=== PATIENT | female | born 1960 | race Caucasian/White ===

== ENCOUNTER 2018-08-22 09:47 | Observation (INO) | payer OTHER ==
[~2018-08-22] VITALS: Ht 154.9 cm; Wt 42.7 kg
[2018-08-22] MEDS ORDERED: ONDANSETRON ODT 4 MG ONE ×2 (10:16→11:11)
[2018-08-22] MEDS ORDERED: FAMOTIDINE 20 MG TABLET ONE (10:16)
[2018-08-22] MEDS ORDERED: MAALOX/HYOSCYAMINE/LIDOCAINE 45 ML BTL ONE (10:16)
[2018-08-22] MEDS ORDERED: LORazepam 1MG TABLET ONE ×2 (10:16→11:11)
[2018-08-22 10:22] LABS: BASOPHILS # (AUTO) 0.03 x10^3/uL (0-0.1); BASOPHILS % (AUTO) 0 % (0-1); EOSINOPHILS # (AUTO) 0.01 x10^3/uL (0-0.4); EOSINOPHILS % (AUTO) 0 % (1-7); LYMPHOCYTES # (AUTO) 1.23 x10^3/uL (1-3.4); LYMPHOCYTES % (AUTO) 12 % (22-44); MD NO; MEAN CORPUSCULAR HEMOGLOBIN 28.6 pg (27.0-34.8); MEAN CORPUSCULAR VOLUME 86.8 fL (80-100); MEAN PLATELET VOLUME 7.2 fL (7.4-10.4); MONOCYTES % (AUTO) 2 % (2-9); NEUTROPHILS # (AUTO) 8.67 x10^3/uL (1.8-6.8); NEUTROPHILS % (AUTO) 86 % (42-75); PLATELET COUNT 335 x10^3/uL (130-400); RED BLOOD COUNT 4.84 x10^6/uL (3.82-5.3); RED CELL DISTRIBUTION WIDTH 14.3 % (9.6-15.2)
[2018-08-22] MEDS ORDERED: PLEASE ENTER ALLERGIES MC SCH (10:30)
[2018-08-22] MEDS ORDERED: ONDANSETRON 2MG/ML, 2ML IVPush ONE (10:30)
[2018-08-22] MEDS ORDERED: MAALOX/HYOSCYAMINE/LIDOCAINE 45 ML BTL PO ONE ×2 (10:30→14:00)
[2018-08-22] MEDS ORDERED: SODIUM CHLORIDE FLUSH 10ML SYR IVF ONE (10:30)
[2018-08-22] MEDS ORDERED: LORazepam 1MG TABLET PO ONE (10:30)
[2018-08-22] MEDS ORDERED: FAMOTIDINE 20 MG/2 ML IVP ONE (10:30)
[2018-08-22 10:31] LABS: ALBUMIN 4.1 g/dL (3.4-5.0); ANION GAP 7 mmol/L (5-15); CALCIUM 9.2 mg/dL (8.5-10.1); CHLORIDE 105 mmol/L (98-107)
--- NOTE | 2018-08-22 10:33 | NUR ---
ASSUMED CARE OF PT. PT PRESENTS TO ED WITH C/O LEFT SIDED ABD PAIN STARTING LAST NIGHT. HX OF GERD. PT BREATHING RAPID THOUGH NOT LABORED. PT APPEARS TO BE VERY ANXIOUS AT THSI TIME. POC DISCUSSED. PT MEDICATED PER AUG. 5 RIGHTS VERIFIED PRIOR. 3 P'S ADDRESSED.
[2018-08-22] MEDS ORDERED: ONDANSETRON ODT 4 MG PO ONE ×2 (10:36→11:00)
[2018-08-22 10:37] LABS: ALANINE AMINOTRANSFERASE 29 U/L (12-78); ALKALINE PHOSPHATASE 75 U/L (45-117); BILIRUBIN,TOTAL 0.4 mg/dL (0.2-1.0); CREATININE 0.81 mg/dL (0.55-1.02); TOTAL PROTEIN 7.2 g/dL (6.4-8.2); TROPONIN I < 0.015 ng/mL (0.000-0.045)
[2018-08-22] MEDS ORDERED: FAMOTIDINE 20 MG TABLET PO ONE (11:00)
--- NOTE | 2018-08-22 11:20 | NUR ---
US AT BEDSIDE.
--- NOTE | 2018-08-22 11:57 | NUR ---
IV STARTED. POC UPDATED.
[2018-08-22] MEDS ORDERED: MORPHINE SULFATE 4 MG/ML, 1ML ONE ×2 (12:00→14:10)
[2018-08-22] MEDS: MORPHINE SULFATE 4 MG/ML, 1ML IVPush PRN ×2 (12:04→14:14)
--- NOTE | 2018-08-22 12:05 | NUR ---
PT MEDICATED PER AUG. 5 RIGHTS VERIFIED PRIOR. 3 P'S ADDRESSED.
[2018-08-22] MEDS ORDERED: OMNIPAQUE 350 MG/ML, 100ML BOTTLE ONE (12:45)
--- NOTE | 2018-08-22 12:56 | NUR ---
PT BACK FROM CT VIA [facility].
--- NOTE | 2018-08-22 13:32 | NUR ---
PT TO BE ADMITTED PER ERMD.
[2018-08-22] MEDS ORDERED: ENOXAPARIN 40 MG/0.4 ML SQ SCH (14:00)
[2018-08-22] MEDS ORDERED: LABETALOL 5MG/ML, 20ML IVPush PRN (14:00)
[2018-08-22] MEDS ORDERED: DOCUSATE 100 MG CAPSULE PO PRN (14:00)
[2018-08-22] MEDS ORDERED: POTASSIUM CHLORIDE 20 MEQ TAB.ER.PRT PO ONE (14:00)
[2018-08-22] MEDS ORDERED: ACETAMINOPHEN 325 MG TABLET PO PRN (14:00)
[2018-08-22] MEDS ORDERED: ONDANSETRON 2MG/ML, 2ML IVPush PRN (14:00)
[2018-08-22] MEDS ORDERED: NITROGLYCERIN 0.4 MG BOTTLE (25 TABS) SL PRN (14:00)
[2018-08-22] MEDS ORDERED: GABAPENTIN 300 MG CAPSULE PO PRN (14:00)
[2018-08-22] MEDS ORDERED: BISACODYL 10 MG SUPP PR PRN (14:00)
[2018-08-22] MEDS ORDERED: KETOROLAC 30 MG/1 ML IV PRN (14:00)
[2018-08-22] MEDS ORDERED: ENALAPRILAT 1.25 MG/ML, 2ML IVPush PRN (14:00)
[2018-08-22] MEDS ORDERED: POLYETHYLENE GLYCOL 17 GM PACKET PO PRN (14:00)
--- NOTE | 2018-08-22 14:13 | NUR ---
PT MEDICATED FOR CONTINUE PAIN.
--- NOTE | 2018-08-22 14:36 | NUR ---
REPORT TO RENETTA CAPONE.
[2018-08-22 14:50] LABS: HEMOGLOBIN A1C 5.6 % (4.2-6.3)
--- NOTE | 2018-08-22 14:52 | NUR ---
PT TO FLOOR WITH EMT.
[2018-08-22 15:02] VITALS: BP 118/76
[2018-08-22] MEDS ORDERED: OMEP20TA9 PO (16:24)
[2018-08-22] MEDS: SUCRALFATE 1 GM/10 ML UDC PO SCH ×2 (16:45→20:35)
[2018-08-22 18:07] LABS: TROPONIN I 0.084 ng/mL (0.000-0.045)
[2018-08-22 18:22] LABS: MICROSCOPIC AUTO
[2018-08-22 18:27] LABS: CULTURE INDICATED? NO
[2018-08-22 19:40] VITALS: BP 116/75
[2018-08-22 19:51] LABS: AMPHETAMINE SCREEN, URINE Negative (Negative); BARBITURATE SCREEN, URINE Negative (Negative); BENZODIAZEPINE SCREEN, URINE Negative (Negative); CANNABINOID SCREEN, URINE Positive (Negative); COCAINE SCREEN, URINE Negative (Negative); METHADONE SCREEN, URINE Negative (Negative); OPIATE SCREEN, URINE Positive (Negative)
[2018-08-22] MEDS: OMEPRAZOLE 20 MG CAPSULE.DR PO SCH (20:35)
[2018-08-22 23:17] LABS: TROPONIN I 0.061 ng/mL (0.000-0.045)
[2018-08-23 01:27] VITALS: BP 111/73
[2018-08-23 05:14] LABS: BASOPHILS # (AUTO) 0.01 x10^3/uL (0-0.1); BASOPHILS % (AUTO) 0 % (0-1); EOSINOPHILS # (AUTO) 0.15 x10^3/uL (0-0.4); EOSINOPHILS % (AUTO) 1 % (1-7); LYMPHOCYTES # (AUTO) 1.13 x10^3/uL (1-3.4); LYMPHOCYTES % (AUTO) 11 % (22-44); MD NO; MEAN CORPUSCULAR HEMOGLOBIN 29.2 pg (27.0-34.8); MEAN CORPUSCULAR HGB CONC 33.5 g/dL (32.4-35.8); MEAN CORPUSCULAR VOLUME 87.1 fL (80-100); MEAN PLATELET VOLUME 7.2 fL (7.4-10.4); MONOCYTES # (AUTO) 0.23 x10^3/uL (0.2-0.8); MONOCYTES % (AUTO) 2 % (2-9); NEUTROPHILS % (AUTO) 86 % (42-75); PLATELET COUNT 306 x10^3/uL (130-400); RED BLOOD COUNT 4.78 x10^6/uL (3.82-5.3); RED CELL DISTRIBUTION WIDTH 14.5 % (9.6-15.2)
[2018-08-23 05:24] LABS: CHLORIDE 108 mmol/L (98-107)
[2018-08-23 05:34] LABS: ANION GAP 7 mmol/L (5-15); CALCIUM 9.2 mg/dL (8.5-10.1); CHOLESTEROL, TOTAL 199 mg/dL (140-239); CREATININE 0.69 mg/dL (0.55-1.02); HDL CHOL % 49 % (28-40); HDL CHOLESTEROL (DIRECT) 98 mg/dL (40-60); LDL CHOLESTEROL,CALCULATED 84 mg/dL (54-169); LDL/HDL RATIO 0.9 (0.5-3.0); TRIGLYCERIDES 85 mg/dL (50-200); TROPONIN I 0.035 ng/mL (0.000-0.045); VLDL CHOLESTEROL 17 mg/dL (0-25)
[2018-08-23] MEDS: OMEPRAZOLE 20 MG CAPSULE.DR PO SCH (05:36)
[2018-08-23] MEDS ORDERED: ASPIRIN 325 MG TABLET EC PO SCH (06:00)
[2018-08-23 07:45] VITALS: BP 110/71
[2018-08-23] MEDS: SUCRALFATE 1 GM/10 ML UDC PO SCH ×2 (07:56→13:19)
[2018-08-23] MEDS ORDERED: SUCR1ORA5 PO (13:38)
[2018-08-23 13:50] VITALS: BP 128/86
== END 2018-08-23 14:40 | disposition home or self-care (01) ==
LOC: ED 13:27 → INTOOBSV 13:28 → EDIP 13:28 → ED 13:33 → 3NE 14:17 → EDIP 14:37 → 5SO 14:53 → DCLOUNGE 08-23 14:28
PROVIDERS: ADMIT Internal Medicine; ATTEND Internal Medicine
DX: R07.9 Chest pain, unspecified (principal); R10.13 Epigastric pain; D72.829 Elevated white blood cell count, unspecified; E87.6 Hypokalemia; F12.90 Cannabis use, unspecified, uncomplicated; I49.3 Ventricular premature depolarization; K21.9 Gastro-esophageal reflux disease without esophagitis; I10 Essential (primary) hypertension
CPT/HCPCS: 36415; 71045; 74177; 76700; 78452; 80048; 80053; 80061; 80307; 81001; 83036; 83690; 84484; 85025; 93005; 93017; 96372; 96374; 96376; 99284; A9502; C9898; G0378; J1650; Q0162; Q9967

== ENCOUNTER 2018-10-16 23:13 | Emergency (ER) | payer SELFPAY ==
[~2018-10-16] VITALS: Ht 152.4 cm; Wt 59.0 kg
[~2018-10-16 23:13] MED LIST: OMEP20TA9 PO; SUCR1ORA5 PO
[2018-10-16] MEDS ORDERED: HYDROmorphone 1 MG/ML, 1ML VIAL ONE (23:34)
[2018-10-16] MEDS ORDERED: PROMETHAZINE 25 MG/ML, 1ML ONE (23:34)
[2018-10-17] MEDS ORDERED: PROMETHAZINE 25 MG/ML, 1ML IM ONE
[2018-10-17] MEDS ORDERED: HYDROmorphone 1 MG/ML, 1ML INJ IM ONE
--- NOTE | 2018-10-17 00:04 | NUR ---
PAIN IN EPIGASTRIC AREA, STARTED YESTERDAY. PT ACTIVELY DRY HEAVING IN TRIAGE. ALSO C/O CHEST PAIN per triage note
--- NOTE | 2018-10-17 00:05 | NUR ---
given meds bp is up high was notified pt is resitng now will reassess
[2018-10-17 00:07] VITALS: BP 178/100
[2018-10-17] MEDS ORDERED: SODIUM CHLORIDE FLUSH 10ML SYR IVF ONE (00:30)
[2018-10-17 00:38] LABS: BASOPHILS % (AUTO) 0 % (0-1); EOSINOPHILS # (AUTO) 0.08 x10^3/uL (0-0.4); EOSINOPHILS % (AUTO) 1 % (1-7); LYMPHOCYTES # (AUTO) 0.74 x10^3/uL (1-3.4); LYMPHOCYTES % (AUTO) 8 % (22-44); MD NO; MEAN CORPUSCULAR HEMOGLOBIN 29.4 pg (27.0-34.8); MEAN CORPUSCULAR HGB CONC 33.3 g/dL (32.4-35.8); MEAN CORPUSCULAR VOLUME 88.5 fL (80-100); MEAN PLATELET VOLUME 7.1 fL (7.4-10.4); MONOCYTES # (AUTO) 0.19 x10^3/uL (0.2-0.8); MONOCYTES % (AUTO) 2 % (2-9); NEUTROPHILS # (AUTO) 7.78 x10^3/uL (1.8-6.8); NEUTROPHILS % (AUTO) 88 % (42-75); PLATELET COUNT 262 x10^3/uL (130-400); RED BLOOD COUNT 4.73 x10^6/uL (3.82-5.3); RED CELL DISTRIBUTION WIDTH 14.1 % (9.6-15.2)
[2018-10-17 00:50] LABS: ALANINE AMINOTRANSFERASE 24 U/L (12-78); ANION GAP 6 mmol/L (5-15); CHLORIDE 106 mmol/L (98-107); CREATININE 1.03 mg/dL (0.55-1.02)
[2018-10-17 00:52] LABS: INTERNATIONAL NORMALIZED RATIO 0.92 (0.93-1.1); PROTHROMBIN TIME 9.7 Seconds (9.6-11.5)
[2018-10-17 00:54] LABS: ALKALINE PHOSPHATASE 71 U/L (45-117); BILIRUBIN,TOTAL 0.1 mg/dL (0.2-1.0); TOTAL PROTEIN 6.9 g/dL (6.4-8.2); TROPONIN I < 0.015 ng/mL (0.000-0.045)
--- NOTE | 2018-10-17 01:28 | NUR ---
NEED NEW IV FOR CTA
--- NOTE | 2018-10-17 02:13 | NUR ---
PT CAME BACK FROM CT
[2018-10-17] MEDS ORDERED: OMNIPAQUE 350 MG/ML, 100ML BOTTLE ONE (02:40)
== END 2018-10-17 03:32 | disposition home or self-care (01) ==
LOC: ED 23:59
DX: R10.13 Epigastric pain (principal); R07.89 Other chest pain
CPT/HCPCS: 36415; 71275; 74175; 80053; 83605; 83690; 83880; 84484; 85025; 85610; 85730; 93005; 96372; 99284; J1170; J2550; Q9967

== ENCOUNTER 2018-10-17 19:06 | Emergency (ER) | payer SELFPAY ==
[~2018-10-17] VITALS: Ht 167.6 cm; Wt 55.0 kg
[2018-10-17] MEDS ORDERED: SODIUM CHLORIDE FLUSH 10ML SYR IVF ONE ×2 (19:30→20:00)
[2018-10-17 19:31] LABS: MEAN CORPUSCULAR HEMOGLOBIN 29.6 pg (27.0-34.8); MEAN CORPUSCULAR HGB CONC 33.6 g/dL (32.4-35.8); MEAN CORPUSCULAR VOLUME 88.1 fL (80-100); MEAN PLATELET VOLUME 7.3 fL (7.4-10.4); PLATELET COUNT 333 x10^3/uL (130-400); RED BLOOD COUNT 5.63 x10^6/uL (3.82-5.3)
[2018-10-17 19:42] LABS: MD YES
[2018-10-17] MEDS ORDERED: ONDANSETRON 2MG/ML, 2ML ONE (19:54)
[2018-10-17] MEDS ORDERED: HYDROmorphone 1 MG/ML, 1ML VIAL ONE (19:55)
[2018-10-17 19:57] LABS: ANION GAP 11 mmol/L (5-15); CALCIUM 10.2 mg/dL (8.5-10.1); CHLORIDE 101 mmol/L (98-107)
[2018-10-17 20:00] LABS: ALANINE AMINOTRANSFERASE 26 U/L (12-78); ALKALINE PHOSPHATASE 90 U/L (45-117); BILIRUBIN,TOTAL 0.6 mg/dL (0.2-1.0); CREATININE 1.42 mg/dL (0.55-1.02); TOTAL PROTEIN 8.5 g/dL (6.4-8.2)
[2018-10-17] MEDS ORDERED: HYDROmorphone 2 MG/ML, 1ML IVPush PRN (20:00)
[2018-10-17] MEDS ORDERED: ONDANSETRON 2MG/ML, 2ML IVPush ONE (20:00)
[2018-10-17] MEDS ORDERED: SODIUM CHLORIDE 0.9% 1,000ML IVBOLUS ONE (20:00)
--- NOTE | 2018-10-17 20:02 | NUR ---
PT MOANING LOUDLY WITH RIGHT UPPER QUANDRANT ABDOMINAL PAIN. PIV STARTED. PT MEDICATED FOR PAIN AND NAUSEA PER EMAR.
[2018-10-17 20:07] LABS: MICROSCOPIC INDICATED
[2018-10-17 20:17] LABS: BANDS%(MANUAL) 1 % (0-7); LYMPH#(MANUAL) 1.79 x10^3/uL (1-3.4); LYMPHS% (MANUAL) 9 % (22-44); MONOS% (MANUAL) 5 % (2-9); SEG#(MANUAL) 16.92 x10^3/uL (1.8-6.8); SEGS% (MANUAL) 85 % (42-75)
[2018-10-17 20:19] LABS: <RBC MORPHOLOGY> NORMAL
[2018-10-17 20:20] LABS: <PLATELET ESTIMATE> ADEQUATE; SMALL PLATELETS 1+
[2018-10-17 20:27] LABS: CULTURE INDICATED? NO
--- NOTE | 2018-10-17 20:45 | NUR ---
PT DENIES PAIN OR NAUSEA AT THIS TIME. IV FLUIDS FINISHED INFUSING. CRYING "SAYING SHE HAS NO ONE HERE ALL HER FAMILY IS IN [place]." SUPPORT GIVEN, PT SHOWING PICTURES OF FAMILY.
--- NOTE | 2018-10-17 22:00 | NUR ---
PT TAKEN FOR CT.
--- NOTE | 2018-10-17 22:59 | NUR ---
PT SLEEPING AT THIS TIME. VSS. NO PAIN OR NAUSEA VOICED.
[2018-10-17] MEDS ORDERED: CIPROFLOXACIN/PMX 400MG/200ML 100 ML IVPB ONE (23:30)
[2018-10-17] MEDS ORDERED: METRONIDAZOLE PMX 500MG/100ML 100 ML IVPB ONE (23:30)
[2018-10-17] MEDS ORDERED: METRONIDAZOLE PMX 500MG/100ML 100 ML ONE (23:39)
[2018-10-17] MEDS ORDERED: CIPROFLOXACIN/PMX 400MG/200ML 200 ML ONE (23:39)
[2018-10-18] MEDS ORDERED: SODIUM CHLORIDE FLUSH 10ML SYR IVF PRN
--- NOTE | 2018-10-18 00:49 | NUR ---
HOSPITALIST SPOKE WITH PT ABOUT MANAGING SYMPTOMS WITH PO PILLS AT HOME. PO CHALLENGE STARTED, PT TOLERATING WELL WITH NO PAIN OR EMESIS. IV ANTIBIOTICS INFUSING PER EMAR. PLAN IS TO DISCHARGE HOME ON ANTIBIOTICS AND PAIN MEDICATION PO AFTER ANTIBIOTICS INFUSION.
--- NOTE | 2018-10-18 00:57 | NUR ---
REPORT OF PT FROM RENETTA GA AND ASSUMING CARE OF PT AT THIS TIME.
--- NOTE | 2018-10-18 01:56 | NUR ---
pt d/c with d/c summary and scripts. all questions answered. pt iv d/c with tip intact. pt denies any other needs pertaining to this visit. pt calling ub[employer] for ride home.
[2018-10-18 01:57] VITALS: BP 106/65
== END 2018-10-18 02:00 | disposition home or self-care (01) ==
LOC: ED 20:17 → UNDOADMIN 23:45 → EDIP 23:45 → ED 10-18 02:00
DX: K57.32 Diverticulitis of large intestine without perforation or abscess without bleeding (principal)
CPT/HCPCS: 36415; 74176; 76700; 80053; 81001; 83605; 83690; 85025; 93005; 96361; 96365; 96368; 96375; 99284; J0744; J1170; J2405; J7030

== ENCOUNTER 2019-12-10 08:02 | Inpatient (IN) | payer MEDICAID ==
[~2019-12-10] VITALS: Ht 152.4 cm; Wt 58.0 kg
[2019-12-10] MEDS ORDERED: CHLO25TA PO (08:21)
--- NOTE | 2019-12-10 08:45 | NUR ---
THIS IS A 59 YO F W/ C/O GENERALIZED ABD PAIN W/ NAUSEA AND DIARRHEA SINCE LAST NIGHT. PT REPORTS IT FEELS LIKE A COLITIS FLARE UP THAT SHE HAD IN [place]. PT DENIES HEMATEMESIS/MELENA. DENIES RECENT USE OF ABX. PT IS RESTING ON GURNEY W/ CALL LIGHT IN REACH, HYPERTENSIVE, OTHER VS WDL.
[2019-12-10] MEDS ORDERED: ONDANSETRON 2MG/ML, 2ML ONE (08:49)
[2019-12-10] MEDS ORDERED: MORPHINE SULFATE 4 MG/ML, 1ML ONE ×3 (08:49→12:47)
--- NOTE | 2019-12-10 08:56 | NUR ---
2 FAILED PIV ATTEMPTS. PAYAL JACKSON IN W/ US.
[2019-12-10] MEDS ORDERED: ONDANSETRON 2MG/ML, 2ML IVPush ONE (09:00)
[2019-12-10] MEDS ORDERED: SODIUM CHLORIDE 0.9% 1,000ML IVBOLUS ONE (09:00)
[2019-12-10] MEDS: MORPHINE SULFATE 4 MG/ML, 1ML IVPush PRN ×2 (09:02→09:20)
--- NOTE | 2019-12-10 09:05 | NUR ---
PT MEDICATED PER EMAR.
[2019-12-10 09:11] LABS: BASOPHILS # (AUTO) 0.02 x10^3/uL (0-0.1); BASOPHILS % (AUTO) 0 % (0-1); EOSINOPHILS % (AUTO) 0 % (1-7); LYMPHOCYTES % (AUTO) 7 % (22-44); MD NO; MEAN CORPUSCULAR HEMOGLOBIN 29.1 pg (27.0-34.8); MEAN CORPUSCULAR HGB CONC 33.4 g/dL (32.4-35.8); MEAN CORPUSCULAR VOLUME 87.1 fL (80-100); MEAN PLATELET VOLUME 7.4 fL (7.4-10.4); MONOCYTES # (AUTO) 0.08 x10^3/uL (0.2-0.8); MONOCYTES % (AUTO) 1 % (2-9); NEUTROPHILS # (AUTO) 10.08 x10^3/uL (1.8-6.8); NEUTROPHILS % (AUTO) 92 % (42-75); PLATELET COUNT 393 x10^3/uL (130-400); RED BLOOD COUNT 5.23 x10^6/uL (3.82-5.3)
[2019-12-10 09:20] LABS: ALANINE AMINOTRANSFERASE 29 U/L (12-78); ALBUMIN 4.7 g/dL (3.4-5.0); ANION GAP 14 mmol/L (5-15); CALCIUM 10.8 mg/dL (8.5-10.1); CHLORIDE 99 mmol/L (98-107); CREATININE 1.19 mg/dL (0.55-1.02)
--- NOTE | 2019-12-10 09:21 | NUR ---
PT REPORTS NO RELIEF OF PAIN AFTER MEDS. PT MEDICATED PER EMAR.
[2019-12-10 09:22] LABS: ALKALINE PHOSPHATASE 88 U/L (45-117); BILIRUBIN,TOTAL 0.7 mg/dL (0.2-1.0); TOTAL PROTEIN 8.3 g/dL (6.4-8.2)
--- NOTE | 2019-12-10 09:47 | NUR ---
PT TO CT.
--- NOTE | 2019-12-10 10:09 | NUR ---
PT AMBULATED TO THE BR W/ A STEADY GAIT. RETURNED TO [facility], CONNECTED TO MONITORING. RESP EVEN AND UNLABORED, NADN. AWAITING CT RESULTS.
[2019-12-10] MEDS ORDERED: OMNIPAQUE 350 MG/ML, 100ML BOTTLE ONE (10:17)
--- NOTE | 2019-12-10 10:19 | NUR ---
ALL TESTS RESULTED. PT IS UP FOR RECHECK AT THIS TIME.
--- NOTE | 2019-12-10 10:48 | NUR ---
IN ROOM FOR RECHECK.
[2019-12-10] MEDS ORDERED: METRONIDAZOLE PMX 500MG/100ML 100 ML IV ONE (11:00)
[2019-12-10] MEDS ORDERED: CEFTRIAXONE PMX 1GM/50ML 50 ML IV ONE (11:00)
[2019-12-10] MEDS ORDERED: POTASSIUM CHLORIDE 40 MEQ in SODIUM CHLORIDE 0.9% 500 ML IV ONE (11:00)
[2019-12-10] MEDS ORDERED: CEFTRIAXONE PMX 1GM/50ML 50 ML ONE (11:08)
--- NOTE | 2019-12-10 11:12 | NUR ---
SPOKE W/ REGARDING CULTURES. HE REPORTS HE WILL ORDER CULTURES, WILL WAIT TO HANG ABX.
[2019-12-10] MEDS ORDERED: KETOROLAC 30 MG/1 ML ONE (11:16)
--- NOTE | 2019-12-10 11:23 | NUR ---
LAB IN ROOM DRAWING CULTURES.
[2019-12-10] MEDS ORDERED: METRONIDAZOLE PMX 500MG/100ML 100 ML ONE (11:26)
[2019-12-10] MEDS ORDERED: KETOROLAC 30 MG/1 ML IVPush ONE (11:30)
--- NOTE | 2019-12-10 12:05 | NUR ---
POTASSIUM PAUSED TO GIVE METRONIDAZOLE.
--- NOTE | 2019-12-10 12:19 | NUR ---
ATTEMPT TO CALL RN FOR REPORT. BETH JACKSON UNAVAILABLE AND WILL CALL BACK.
--- NOTE | 2019-12-10 12:40 | NUR ---
PRESUMED ADMITTING PROVIDER CAME UP TO THIS RN AND ASKED TO GIVE PATIENT "ANOTHER SHOT OF MORPHINE". I ASKED IF HE WOULD PUT IN THE ORDER AND HE STATED VERBAL ORDER AND WALKED AWAY. UNSURE OF PROVIDER NAME, DOSE, ROUTE OR FREQUENCY SO CAN NOT COMPLETE TASK AT THIS TIME.
--- NOTE | 2019-12-10 12:46 | NUR ---
PER ADMITTING PROVIDER IS DR.TAE SAMS.
[2019-12-10] MEDS: METRONIDAZOLE PMX 500MG/100ML 100 ML IV SCH ×2 (12:57→21:15)
[2019-12-10] MEDS ORDERED: ONDANSETRON 2MG/ML, 2ML IVPush PRN (13:00)
[2019-12-10] MEDS ORDERED: MORPHINE SULFATE 4 MG/ML, 1ML IVPush ONE (13:00)
[2019-12-10] MEDS ORDERED: MORPHINE SULFATE 4 MG/ML, 1ML IVPush PRN (13:00)
[2019-12-10] MEDS ORDERED: ACETAMINOPHEN 325 MG TABLET PO PRN (13:00)
[2019-12-10] MEDS ORDERED: ONDANSETRON ODT 4 MG PO PRN (13:00)
[2019-12-10] MEDS ORDERED: KETOROLAC 30 MG/1 ML IV PRN (13:00)
[2019-12-10] MEDS ORDERED: NS + 40MEQ KCL 1,000 ML IV SCH (13:00)
[2019-12-10] MEDS ORDERED: CIPROFLOXACIN/PMX 400MG/200ML 200 ML ONE (13:17)
[2019-12-10] MEDS: CIPROFLOXACIN/PMX 400MG/200ML 200 ML IV SCH (13:19)
[2019-12-10 13:50] VITALS: BP 97/68
[2019-12-10 14:16] VITALS: BP 97/68
[2019-12-10] MEDS: HEPARIN 5,000 UNITS/ML, 1ML SQ SCH (15:17)
[2019-12-10] MEDS: INSULIN LISPRO 100 UNITS/ML, PEN SQ-INSULIN SCH ×2 (16:00→19:50)
[2019-12-10] MEDS: LACTOBACILLUS CHEW TABLET PO SCH ×2 (16:09→21:15)
[2019-12-10] MEDS: CARVEDILOL 3.125 MG TABLET PO SCH (17:49)
[2019-12-10 19:30] VITALS: BP 100/58
[2019-12-11] VITALS (9 sets, daily range): BP systolic 83–114; BP diastolic 50–72
[2019-12-11] MEDS: CIPROFLOXACIN/PMX 400MG/200ML 200 ML IV SCH ×2 (01:13→12:44)
[2019-12-11] MEDS: HEPARIN 5,000 UNITS/ML, 1ML SQ SCH ×2 (03:00→14:25)
[2019-12-11] MEDS: METRONIDAZOLE PMX 500MG/100ML 100 ML IV SCH ×3 (04:44→20:43)
[2019-12-11] MEDS: CARVEDILOL 3.125 MG TABLET PO SCH (05:36)
[2019-12-11 05:47] LABS: CHLORIDE 109 mmol/L (98-107)
[2019-12-11 05:50] LABS: BASOPHILS # (AUTO) 0.09 x10^3/uL (0-0.1); BASOPHILS % (AUTO) 1 % (0-1); EOSINOPHILS # (AUTO) 0.09 x10^3/uL (0-0.4); EOSINOPHILS % (AUTO) 2 % (1-7); LYMPHOCYTES # (AUTO) 1.42 x10^3/uL (1-3.4); LYMPHOCYTES % (AUTO) 22 % (22-44); MD NO; MEAN CORPUSCULAR HEMOGLOBIN 28.9 pg (27.0-34.8); MEAN CORPUSCULAR HGB CONC 32.7 g/dL (32.4-35.8); MEAN CORPUSCULAR VOLUME 88.3 fL (80-100); MEAN PLATELET VOLUME 7.8 fL (7.4-10.4); MONOCYTES # (AUTO) 0.42 x10^3/uL (0.2-0.8); MONOCYTES % (AUTO) 7 % (2-9); NEUTROPHILS # (AUTO) 4.39 x10^3/uL (1.8-6.8); NEUTROPHILS % (AUTO) 68 % (42-75); PLATELET COUNT 277 x10^3/uL (130-400); RED BLOOD COUNT 3.92 x10^6/uL (3.82-5.3); RED CELL DISTRIBUTION WIDTH 13.2 % (9.6-15.2)
[2019-12-11 05:51] LABS: ANION GAP 5 mmol/L (5-15); CALCIUM 8.3 mg/dL (8.5-10.1); CREATININE 0.72 mg/dL (0.55-1.02)
[2019-12-11] MEDS ORDERED: OMEPRAZOLE 20 MG CAPSULE.DR PO SCH (06:00)
[2019-12-11] MEDS: INSULIN LISPRO 100 UNITS/ML, PEN SQ-INSULIN SCH ×2 (06:41→11:00)
[2019-12-11] MEDS: LACTOBACILLUS CHEW TABLET PO SCH (08:12)
[2019-12-11] MEDS ORDERED: CALCIUM CARBONATE 500 MG TAB.CHEW PO PRN (09:30)
[2019-12-11] MEDS: LACTATED RINGERS 1,000 ML IV SCH ×3 (09:42→23:02)
[2019-12-11] MEDS: POTASSIUM CHLORIDE 20 MEQ TAB.ER.PRT PO SCH ×3 (09:42→20:43)
[2019-12-12] MEDS: CIPROFLOXACIN/PMX 400MG/200ML 200 ML IV SCH (00:35)
[2019-12-12 02:00] VITALS: BP 106/71
[2019-12-12] MEDS: HEPARIN 5,000 UNITS/ML, 1ML SQ SCH (02:51)
[2019-12-12] MEDS: METRONIDAZOLE PMX 500MG/100ML 100 ML IV SCH (04:56)
[2019-12-12] MEDS: LACTATED RINGERS 1,000 ML IV SCH ×2 (06:06→10:32)
[2019-12-12 06:27] VITALS: BP 105/69
[2019-12-12 07:08] LABS: BASOPHILS # (AUTO) 0.02 x10^3/uL (0-0.1); BASOPHILS % (AUTO) 1 % (0-1); EOSINOPHILS # (AUTO) 0.05 x10^3/uL (0-0.4); EOSINOPHILS % (AUTO) 1 % (1-7); LYMPHOCYTES # (AUTO) 1.31 x10^3/uL (1-3.4); LYMPHOCYTES % (AUTO) 32 % (22-44); MD NO; MEAN CORPUSCULAR HEMOGLOBIN 29.3 pg (27.0-34.8); MEAN CORPUSCULAR HGB CONC 33.4 g/dL (32.4-35.8); MEAN CORPUSCULAR VOLUME 87.8 fL (80-100); MEAN PLATELET VOLUME 7.2 fL (7.4-10.4); MONOCYTES # (AUTO) 0.31 x10^3/uL (0.2-0.8); MONOCYTES % (AUTO) 8 % (2-9); NEUTROPHILS # (AUTO) 2.42 x10^3/uL (1.8-6.8); NEUTROPHILS % (AUTO) 59 % (42-75); PLATELET COUNT 252 x10^3/uL (130-400); RED BLOOD COUNT 3.73 x10^6/uL (3.82-5.3); RED CELL DISTRIBUTION WIDTH 13.1 % (9.6-15.2)
[2019-12-12 07:13] LABS: CALCIUM 8.3 mg/dL (8.5-10.1); CREATININE 0.65 mg/dL (0.55-1.02)
[2019-12-12 07:24] LABS: ANION GAP 5 mmol/L (5-15); CHLORIDE 111 mmol/L (98-107)
[2019-12-12] MEDS: POTASSIUM CHLORIDE 20 MEQ TAB.ER.PRT PO SCH (08:08)
[2019-12-12] MEDS ORDERED: METR500T PO (09:56)
[2019-12-12] MEDS ORDERED: CIPR500T87 PO (09:56)
== END 2019-12-12 12:01 | disposition home or self-care (01) | DRG 371 ==
LOC: ED 09:23 → EDIP 11:13 → 4EST 13:43 → DCLOUNGE 12-12 11:48
PROVIDERS: ADMIT Hospitalist; ATTEND Internal Medicine
DX: A04.9 Bacterial intestinal infection, unspecified (principal); K55.032 Diffuse acute (reversible) ischemia of large intestine; E87.1 Hypo-osmolality and hyponatremia; D64.9 Anemia, unspecified; E87.6 Hypokalemia; G47.00 Insomnia, unspecified; I10 Essential (primary) hypertension; K21.9 Gastro-esophageal reflux disease without esophagitis; R73.9 Hyperglycemia, unspecified; F41.9 Anxiety disorder, unspecified; D72.829 Elevated white blood cell count, unspecified; Z88.0 Allergy status to penicillin; G90.8 Other disorders of autonomic nervous system
CPT/HCPCS: 36415; 74177; 80048; 80053; 82962; 83036; 83690; 83735; 85025; 87040; 89055; 93005; 93306; 93356; 96361; 96365; 96366; 96375; 96376; G0378; J0696; J0744; J1644; J1885; J2405; J3480; Q0162; Q9967; J2270; J7030; J7040; J7120

== ENCOUNTER 2020-01-17 13:45 | Inpatient (IN) | payer MEDICAID ==
[~2020-01-17] VITALS: Ht 152.4 cm; Wt 53.6 kg
[~2020-01-17 13:45] MED LIST changes: +CHLO25TA PO; +CIPR500T87 PO; +METR500T PO
[2020-01-17] MEDS ORDERED: ONDANSETRON ODT 4 MG PO ONE (14:00)
[2020-01-17 14:23] LABS: BASOPHILS % (AUTO) 0 % (0-1); EOSINOPHILS # (AUTO) 0.07 x10^3/uL (0-0.4); EOSINOPHILS % (AUTO) 1 % (1-7); LYMPHOCYTES # (AUTO) 2.11 x10^3/uL (1-3.4); LYMPHOCYTES % (AUTO) 13 % (22-44); MD NO; MEAN CORPUSCULAR HEMOGLOBIN 28.9 pg (27.0-34.8); MEAN PLATELET VOLUME 7.2 fL (7.4-10.4); MONOCYTES % (AUTO) 1 % (2-9); NEUTROPHILS % (AUTO) 86 % (42-75); PLATELET COUNT 345 x10^3/uL (130-400); RED BLOOD COUNT 4.78 x10^6/uL (3.82-5.3); RED CELL DISTRIBUTION WIDTH 13.7 % (9.6-15.2)
[2020-01-17 14:31] LABS: ALANINE AMINOTRANSFERASE 22 U/L (12-78); ALBUMIN 4.7 g/dL (3.4-5.0); CALCIUM 9.6 mg/dL (8.5-10.1); CHLORIDE 96 mmol/L (98-107); CREATININE 0.82 mg/dL (0.55-1.02)
[2020-01-17 14:34] LABS: ALKALINE PHOSPHATASE 77 U/L (45-117); BILIRUBIN,TOTAL 0.5 mg/dL (0.2-1.0); TOTAL PROTEIN 7.7 g/dL (6.4-8.2)
[2020-01-17 14:41] LABS: ANION GAP 10 mmol/L (5-15)
--- NOTE | 2020-01-17 14:49 | NUR ---
DISPLAY ARTIST: PT WHEELED BACK FROM LOBBY TO ROOM AT THIS TIME.
[2020-01-17] MEDS ORDERED: ONDANSETRON ODT 4 MG ONE (14:54)
[2020-01-17] MEDS ORDERED: ONDANSETRON 2MG/ML, 2ML ONE (15:19)
[2020-01-17] MEDS ORDERED: MORPHINE SULFATE 4 MG/ML, 1ML ONE ×3 (15:19→16:49)
[2020-01-17] MEDS ORDERED: SODIUM CHLORIDE 0.9% 1,000ML IVBOLUS ONE (15:30)
[2020-01-17] MEDS ORDERED: SODIUM CHLORIDE FLUSH 10ML SYR IVF ONE (15:30)
[2020-01-17] MEDS ORDERED: ONDANSETRON 2MG/ML, 2ML IVPush ONE (15:30)
[2020-01-17] MEDS: MORPHINE SULFATE 4 MG/ML, 1ML IVPush PRN ×2 (15:34→16:07)
--- NOTE | 2020-01-17 16:09 | NUR ---
Continues to have C/O pain. Hand IV infiltrated, so EJ started. NS hung and secind dose of morphine hung.
[2020-01-17 16:21] LABS: TROPONIN I < 0.015 ng/mL (0.000-0.045)
[2020-01-17] MEDS ORDERED: POTASSIUM CHLORIDE 20 MEQ TAB.ER.PRT PO ONE (16:30)
[2020-01-17] MEDS ORDERED: POTASSIUM CHLORIDE 40 MEQ in SODIUM CHLORIDE 0.9% 500 ML IV ONE (16:30)
[2020-01-17 16:59] LABS: MICROSCOPIC AUTO
--- NOTE | 2020-01-17 17:01 | NUR ---
Straight cath UA sent to lab. K+ IV hung. VSS. Continues to have pain. MD aware. MD does not want patient to have more pain meds.
[2020-01-17] MEDS ORDERED: OMNIPAQUE 350 MG/ML, 100ML BOTTLE ONE (17:32)
[2020-01-17] MEDS ORDERED: OMEP-110 PO (17:54)
--- NOTE | 2020-01-17 18:05 | NUR ---
Ambulated to the restroom with a steady gait.
--- NOTE | 2020-01-17 18:16 | NUR ---
Pt. w/Medicaid [place]. PSN info. Called [facility]. Spoke to Anastasia. Denied. Call [facility]. Spoke to Denied.
--- NOTE | 2020-01-17 18:26 | NUR ---
Report to RENETTA Morocho.
[2020-01-17] MEDS ORDERED: ENALAPRILAT 1.25 MG/ML, 2ML IVPush PRN (18:30)
[2020-01-17] MEDS ORDERED: morphine SULFATE 10 MG/ML, 1ML IVPush PRN (18:30)
[2020-01-17] MEDS ORDERED: HYDROcodone/APAP 5/325 TABLET PO PRN (18:30)
[2020-01-17] MEDS ORDERED: ACETAMINOPHEN 325 MG TABLET PO PRN (18:30)
[2020-01-17] MEDS ORDERED: ONDANSETRON 2MG/ML, 2ML IVPush PRN (18:30)
[2020-01-17] MEDS ORDERED: ONDANSETRON ODT 4 MG PO PRN (18:30)
[2020-01-17] MEDS ORDERED: MELATONIN 5 MG TABLET PO PRN (18:30)
[2020-01-17] MEDS: SUCRALFATE 1 GM TABLET PO SCH (20:03)
[2020-01-17] MEDS: PANTOPRAZOLE 40 MG IV IVPush SCH (20:03)
[2020-01-17] MEDS: LACTULOSE 10 GM/15 ML UDC PO SCH (20:03)
[2020-01-17 20:12] VITALS: BP 102/68
[2020-01-17] MEDS: NS + 20MEQ KCL 1,000 ML IV SCH (21:13)
[2020-01-18 01:31] VITALS: BP 100/60
[2020-01-18 04:59] LABS: BASOPHILS # (AUTO) 0.06 x10^3/uL (0-0.1); BASOPHILS % (AUTO) 1 % (0-1); EOSINOPHILS # (AUTO) 0.06 x10^3/uL (0-0.4); EOSINOPHILS % (AUTO) 1 % (1-7); LYMPHOCYTES % (AUTO) 24 % (22-44); MD NO; MEAN CORPUSCULAR HEMOGLOBIN 29.1 pg (27.0-34.8); MEAN CORPUSCULAR HGB CONC 33.2 g/dL (32.4-35.8); MEAN PLATELET VOLUME 7.4 fL (7.4-10.4); MONOCYTES % (AUTO) 7 % (2-9); NEUTROPHILS # (AUTO) 4.69 x10^3/uL (1.8-6.8); NEUTROPHILS % (AUTO) 67 % (42-75); PLATELET COUNT 255 x10^3/uL (130-400); RED BLOOD COUNT 4.21 x10^6/uL (3.82-5.3); RED CELL DISTRIBUTION WIDTH 13.8 % (9.6-15.2)
[2020-01-18 05:05] LABS: ANION GAP 5 mmol/L (5-15); CALCIUM 8.5 mg/dL (8.5-10.1); CHLORIDE 111 mmol/L (98-107)
[2020-01-18] MEDS: NS + 20MEQ KCL 1,000 ML IV SCH (06:34)
[2020-01-18] MEDS: SUCRALFATE 1 GM TABLET PO SCH ×4 (07:25→19:58)
[2020-01-18 08:28] VITALS: BP 100/63
[2020-01-18] MEDS: SENNA/DOCUSATE TABLET PO SCH (09:05)
[2020-01-18] MEDS: LACTULOSE 10 GM/15 ML UDC PO SCH ×2 (09:05→19:58)
[2020-01-18] MEDS: PANTOPRAZOLE 40 MG IV IVPush SCH ×2 (09:05→19:58)
[2020-01-18 13:13] LABS: ANION GAP 8 mmol/L (5-15); CALCIUM 8.8 mg/dL (8.5-10.1); CHLORIDE 107 mmol/L (98-107); CREATININE 0.63 mg/dL (0.55-1.02)
[2020-01-18] MEDS ORDERED: ENOXAPARIN 40 MG/0.4 ML SQ SCH (14:30)
[2020-01-18] MEDS ORDERED: POTASSIUM CHLORIDE 40 MEQ in SODIUM CHLORIDE 0.9% 500 ML IV ONE (14:30)
[2020-01-18 14:59] VITALS: BP 116/74
[2020-01-18] MEDS: POTASSIUM CHLORIDE 20 MEQ TAB.ER.PRT PO SCH (16:08)
[2020-01-18 19:07] VITALS: BP 102/68
[2020-01-19] MEDS: NS + 20MEQ KCL 1,000 ML IV SCH (00:13)
[2020-01-19 01:16] VITALS: BP 103/60
[2020-01-19 05:56] LABS: CHLORIDE 113 mmol/L (98-107)
[2020-01-19 06:06] LABS: ALANINE AMINOTRANSFERASE 17 U/L (12-78); ALBUMIN 3.2 g/dL (3.4-5.0); ALKALINE PHOSPHATASE 55 U/L (45-117); ANION GAP 3 mmol/L (5-15); BILIRUBIN,TOTAL 0.4 mg/dL (0.2-1.0); CALCIUM 8.8 mg/dL (8.5-10.1); CREATININE 0.63 mg/dL (0.55-1.02); TOTAL PROTEIN 5.8 g/dL (6.4-8.2)
[2020-01-19 06:43] VITALS: BP 115/75
[2020-01-19] MEDS: SUCRALFATE 1 GM TABLET PO SCH (07:27)
[2020-01-19] MEDS: SENNA/DOCUSATE TABLET PO SCH (08:20)
[2020-01-19] MEDS: LACTULOSE 10 GM/15 ML UDC PO SCH (08:20)
[2020-01-19] MEDS: POTASSIUM CHLORIDE 20 MEQ TAB.ER.PRT PO SCH (08:21)
[2020-01-19] MEDS: PANTOPRAZOLE 40 MG IV IVPush SCH (08:22)
[2020-01-19] MEDS ORDERED: PANTOPRAZOLE 40MG TABLET PO SCH (09:00)
[2020-01-19] MEDS ORDERED: POTASSIUM CHLORIDE 20 MEQ TAB.ER.PRT PO SCH (09:00)
[2020-01-19] MEDS ORDERED: SUCR1TAB33 PO (09:48)
[2020-01-19] MEDS ORDERED: ONDA4TAB7 PO (09:48)
[2020-01-19] MEDS ORDERED: SENN-193 PO (09:48)
[2020-01-19] MEDS ORDERED: PANT40TA6 PO (09:48)
== END 2020-01-19 10:25 | disposition home or self-care (01) | DRG 392 ==
LOC: ED 16:39 → SUATTDRO 18:15 → EDIP 19:12 → 4EST 19:16 → DCLOUNGE 01-19 10:18
PROVIDERS: ADMIT Hospitalist; ATTEND Internal Medicine
DX: K57.30 Diverticulosis of large intestine without perforation or abscess without bleeding (principal); E87.1 Hypo-osmolality and hyponatremia; D72.829 Elevated white blood cell count, unspecified; E87.6 Hypokalemia; F12.20 Cannabis dependence, uncomplicated; I10 Essential (primary) hypertension; K76.0 Fatty (change of) liver, not elsewhere classified
CPT/HCPCS: 36415; 71045; 74177; 80048; 80053; 81001; 83690; 83735; 84484; 85025; 93005; 96361; 96374; 96375; 99285; G0378; J1650; J2405; J3480; Q0162; Q9967; C9113; J2270; J7030; J7040

== ENCOUNTER 2021-02-04 17:43 | Emergency (ER) | payer MEDICAID ==
[~2021-02-04] VITALS: Ht 152.4 cm; Wt 55.0 kg
[~2021-02-04 17:43] MED LIST changes: +OMEP-110 PO; +ONDA4TAB7 PO; +PANT40TA6 PO; +SENN-193 PO; +SUCR1TAB33 PO
--- NOTE | 2021-02-04 17:49 | NUR ---
VIDEO GAME TESTER: PT RESTING IN WHEELCHAIR CALMLY. AFTER SPOUSE LEFT ROOM, PT IMMEDIATELY STATED "HE'S SO MEAN TO ME!". PT STARTED CRYING AND MOANING OUT LOUDLY. PT ABLE TO REMAIN STILL WHEN INSTRUCTED FOR EKG.
[2021-02-04] MEDS ORDERED: SODIUM CHLORIDE 0.9% 1,000ML IVBOLUS ONE (18:00)
[2021-02-04] MEDS ORDERED: ONDANSETRON 2MG/ML, 2ML IVPush ONE (18:00)
[2021-02-04] MEDS ORDERED: MORPHINE SULFATE 4 MG/ML, 1ML IVPush PRN (18:00)
[2021-02-04] MEDS ORDERED: SODIUM CHLORIDE FLUSH 10ML SYR IVF ONE (18:00)
[2021-02-04] MEDS ORDERED: FAMOTIDINE 20 MG/2 ML IVPush ONE (18:00)
[2021-02-04 18:22] LABS: BASOPHILS % (AUTO) 0 % (0-1); EOSINOPHILS % (AUTO) 0 % (1-7); LYMPHOCYTES % (AUTO) 10 % (22-44); MEAN CORPUSCULAR HEMOGLOBIN 29.1 pg (27.0-34.8); MEAN CORPUSCULAR HGB CONC 33.3 g/dL (32.4-35.8); MEAN PLATELET VOLUME 7.7 fL (7.4-10.4); MONOCYTES % (AUTO) 4 % (2-9); NEUTROPHILS % (AUTO) 85 % (42-75); PLATELET COUNT 290 x10^3/uL (130-400); RED BLOOD COUNT 5.09 x10^6/uL (3.82-5.3); RED CELL DISTRIBUTION WIDTH 13.9 % (9.6-15.2)
[2021-02-04] MEDS ORDERED: MORPHINE SULFATE 4 MG/ML, 1ML ONE (18:30)
[2021-02-04] MEDS ORDERED: ONDANSETRON 2MG/ML, 2ML ONE (18:30)
[2021-02-04] MEDS ORDERED: FAMOTIDINE 20 MG/2 ML ONE (18:30)
--- NOTE | 2021-02-04 18:30 | NUR ---
BREAK RN: UPON ENTERING ROOM PT HUNCHED OVER SINK, SMALL AMOUNT OF EMESIS OBSERVED. PT STATES "HE'S SO MEAN TO ME! HE DOESN'T CARE AT ALL, HE CAN'T HANDLE THIS!". PT PRESUMABLY SPEAKING OF SPOUSE WHO CAME WITH PT TO ED, NOT IN ROOM.
[2021-02-04 18:31] LABS: ALANINE AMINOTRANSFERASE 24 U/L (12-78); ALBUMIN 4.4 g/dL (3.4-5.0); ANION GAP 8 mmol/L (5-15); CALCIUM 9.7 mg/dL (8.5-10.1); CHLORIDE 107 mmol/L (98-107); CREATININE 0.86 mg/dL (0.55-1.02)
[2021-02-04 18:34] LABS: ALKALINE PHOSPHATASE 78 U/L (45-117); BILIRUBIN,TOTAL 0.5 mg/dL (0.2-1.0); TOTAL PROTEIN 7.9 g/dL (6.4-8.2)
--- NOTE | 2021-02-04 18:46 | NUR ---
TASK RN: PIV STARTED. AFTER IVF START PT REPORTS PAIN LEVEL OF 4 STATING "DID YOU GIVE ME SOMETHING ALREADY?" AFTER PT INFORMED NO MEDS WERE GIVEN PT STARTED CRYING OUT IN PAIN STATING "IT'S BACK, IT'S BACK". PT MEDICATED PER EMAR. RESTING ON [employer] W/ CALL LIGHT IN REACH AND SIDE RAILS UPX2. RESP EVEN AND UNLABORED, NATALI.
--- NOTE | 2021-02-04 18:58 | NUR ---
REPORT TO ESTHELA JACKSON. PT RESTING ON [employer] W/ CALL LIGHT IN REACH AND SIDE RAILS UPX2. RESP EVEN AND UNLABORED, NATALI.
--- NOTE | 2021-02-04 19:18 | NUR ---
straight cath output was 1100ml Addendum: 02/04/21 at 2104 by [email or web address] PRIOR NOTE WAS WRITTEN ON WRONG PATIENT Addendum: 02/07/21 at 0216 by [email or web address] CHAPINCITO JACKSON ASSISTED AND SUPERVISED STRAIGHT CATH
[2021-02-04] MEDS ORDERED: HALOPERIDOL 5 MG/ML ONE (19:51)
[2021-02-04] MEDS ORDERED: HALOPERIDOL 2 MG/ML ORAL SOL PO ONE (20:00)
[2021-02-04] MEDS ORDERED: HALOPERIDOL 5 MG TABLET PO ONE (20:30)
[2021-02-04] MEDS ORDERED: OMNIPAQUE 350 MG/ML, 100ML BOTTLE ONE (20:40)
--- NOTE | 2021-02-04 20:42 | NUR ---
task rn: to ct scan
--- NOTE | 2021-02-04 21:11 | NUR ---
TASK RN: YANY HUTTON OBTAINED-SENT TO LAB WITH REASSESSMENT PAIN AND NAUSEA COMPLETELY RESOLVED POC UPDATED WITH PATIECNT
[2021-02-04 21:21] LABS: MICROSCOPIC INDICATED
[2021-02-04 22:05] VITALS: BP 113/76
== END 2021-02-04 22:15 | disposition home or self-care (01) ==
LOC: ED 22:00
DX: R10.84 Generalized abdominal pain (principal); R10.13 Epigastric pain; R11.2 Nausea with vomiting, unspecified; E86.0 Dehydration; R94.31 Abnormal electrocardiogram [ECG] [EKG]
CPT/HCPCS: 36415; 74177; 80053; 81001; 83690; 85025; 93005; 96361; 96374; 96375; 99285; J2270; J2405; J7030; Q9967

== ENCOUNTER 2021-03-05 05:09 | Emergency (ER) | payer MEDICAID ==
[~2021-03-05] VITALS: Ht 172.7 cm; Wt 57.7 kg
[2021-03-05 05:11] VITALS: BP 176/83
[2021-03-05] MEDS ORDERED: ONDANSETRON ODT 4 MG ONE (05:15)
[2021-03-05] MEDS ORDERED: ONDANSETRON ODT 4 MG PO ONE (05:30)
[2021-03-05] MEDS ORDERED: ONDANSETRON 2MG/ML, 2ML ONE (05:44)
[2021-03-05] MEDS ORDERED: MORPHINE SULFATE 4 MG/ML, 1ML ONE (05:44)
[2021-03-05] MEDS ORDERED: SODIUM CHLORIDE 0.9% 1,000ML IVBOLUS ONE (06:00)
[2021-03-05] MEDS ORDERED: SODIUM CHLORIDE FLUSH 10ML SYR IVF ONE (06:00)
[2021-03-05] MEDS ORDERED: ONDANSETRON 2MG/ML, 2ML IVPush ONE (06:00)
[2021-03-05] MEDS ORDERED: MORPHINE SULFATE 4 MG/ML, 1ML IVPush ONE (06:00)
[2021-03-05 06:03] LABS: BASOPHILS % (AUTO) 0 % (0-1); EOSINOPHILS % (AUTO) 0 % (1-7); LYMPHOCYTES % (AUTO) 14 % (22-44); MEAN CORPUSCULAR HEMOGLOBIN 28.4 pg (27.0-34.8); MEAN CORPUSCULAR HGB CONC 32.5 g/dL (32.4-35.8); MEAN PLATELET VOLUME 7.9 fL (7.4-10.4); MONOCYTES % (AUTO) 3 % (2-9); NEUTROPHILS % (AUTO) 82 % (42-75); PLATELET COUNT 260 x10^3/uL (130-400); RED BLOOD COUNT 4.84 x10^6/uL (3.82-5.3); RED CELL DISTRIBUTION WIDTH 13.8 % (9.6-15.2)
[2021-03-05 06:14] LABS: ALANINE AMINOTRANSFERASE 26 U/L (12-78); ALBUMIN 4.1 g/dL (3.4-5.0); ANION GAP 7 mmol/L (5-15); CALCIUM 9.8 mg/dL (8.5-10.1); CHLORIDE 109 mmol/L (98-107)
[2021-03-05 06:20] LABS: ALKALINE PHOSPHATASE 75 U/L (45-117); BILIRUBIN,TOTAL 0.4 mg/dL (0.2-1.0); CREATININE 0.88 mg/dL (0.55-1.02); TOTAL PROTEIN 7.4 g/dL (6.4-8.2)
--- NOTE | 2021-03-05 07:02 | NUR ---
Report to RENETTA Rowe. Patient care transferred.
--- NOTE | 2021-03-05 07:06 | NUR ---
REPORT FROM JQ, ASSUME CARE OF PT AT THIS TIME. AWAITING UA RESULTS.
[2021-03-05 07:57] LABS: MICROSCOPIC INDICATED
--- NOTE | 2021-03-05 08:24 | NUR ---
UA RESULTS BACK, PT FOR RECHECK.
== END 2021-03-05 09:03 | disposition home or self-care (01) ==
LOC: ED 05:52
DX: R10.84 Generalized abdominal pain (principal); R11.2 Nausea with vomiting, unspecified; R10.10 Upper abdominal pain, unspecified
CPT/HCPCS: 36415; 71045; 80053; 81001; 83605; 83690; 85025; 87086; 96374; 96375; 99284; J2270; J2405; J7030; Q0162

== ENCOUNTER 2021-03-05 12:11 | Emergency (ER) | payer MEDICAID ==
[~2021-03-05] VITALS: Ht 152.4 cm; Wt 57.7 kg
[2021-03-05 13:12] LABS: BASOPHILS % (AUTO) 0 % (0-1); EOSINOPHILS % (AUTO) 0 % (1-7); LYMPHOCYTES % (AUTO) 4 % (22-44); MEAN CORPUSCULAR HEMOGLOBIN 28.4 pg (27.0-34.8); MEAN CORPUSCULAR HGB CONC 32.6 g/dL (32.4-35.8); MEAN PLATELET VOLUME 7.7 fL (7.4-10.4); MONOCYTES % (AUTO) 2 % (2-9); NEUTROPHILS % (AUTO) 93 % (42-75); PLATELET COUNT 270 x10^3/uL (130-400); RED BLOOD COUNT 5.03 x10^6/uL (3.82-5.3); RED CELL DISTRIBUTION WIDTH 14.2 % (9.6-15.2)
[2021-03-05 13:28] LABS: ALANINE AMINOTRANSFERASE 22 U/L (12-78); ALBUMIN 4.5 g/dL (3.4-5.0); ANION GAP 11 mmol/L (5-15); CALCIUM 10.1 mg/dL (8.5-10.1); CHLORIDE 112 mmol/L (98-107)
[2021-03-05 13:31] LABS: ALKALINE PHOSPHATASE 81 U/L (45-117); BILIRUBIN,TOTAL 0.5 mg/dL (0.2-1.0); CREATININE 0.86 mg/dL (0.55-1.02); TOTAL PROTEIN 8.1 g/dL (6.4-8.2)
[2021-03-05] MEDS ORDERED: HALOPERIDOL 5 MG/ML ONE ×2 (14:29→14:40)
[2021-03-05] MEDS ORDERED: ONDANSETRON 2MG/ML, 2ML ONE (14:29)
[2021-03-05] MEDS ORDERED: SODIUM CHLORIDE 0.9% 1,000ML IVBOLUS ONE ×2 (14:30→15:00)
[2021-03-05] MEDS ORDERED: HALOPERIDOL 5 MG/ML IV ONE (14:30)
[2021-03-05] MEDS ORDERED: ONDANSETRON 2MG/ML, 2ML IVPush ONE (14:30)
[2021-03-05 14:45] LABS: MICROSCOPIC AUTO
[2021-03-05 15:37] LABS: TROPONIN I < 0.015 ng/mL (0.000-0.045)
[2021-03-05 16:14] VITALS: BP 120/76
== END 2021-03-05 17:27 | disposition home or self-care (01) ==
LOC: ED 15:06
DX: K29.00 Acute gastritis without bleeding (principal); R11.2 Nausea with vomiting, unspecified; R94.31 Abnormal electrocardiogram [ECG] [EKG]; Z88.0 Allergy status to penicillin; K21.9 Gastro-esophageal reflux disease without esophagitis
CPT/HCPCS: 36415; 76700; 80053; 81001; 83690; 84484; 85025; 93005; 96361; 96374; 96375; 99285; J1630; J2405; J7030